=== PATIENT | male | born 1990 | race Caucasian/White ===

== ENCOUNTER 2017-07-11 16:06 | Emergency (ER) | payer MEDICAID, OTHER ==
[2017-07-11 16:22] VITALS: BMI 29.2
[2017-07-11 16:23] VITALS: O2SAT 99
[2017-07-11 17:36] VITALS: BP 111/68; PULSE 67; RESP 20; TEMP 98.1
--- NOTE | 2017-07-11 18:09 | C.PDOC ---
History Of Present Illness 27 yr old male presents to the ER with complaints of right arm pain and numbness upon waking up today. Patient states he was sleeping on his right arm and states numbness persists. Denies fever, chills, vision changes, chest pain, SOB, nausea, vomiting, weakness or numbness. Time Seen by Provider: 07/11/17 16:26 Chief Complaint (Nursing): Upper Extremity Problem/Injury History Per: Patient History/Exam Limitations: no limitations Onset/Duration Of Symptoms: Days Past Medical History Reviewed: Historical Data, Nursing Documentation, Vital Signs Vital Signs: Last Vital Signs Temp 98.1 F 07/11/17 17:35 Pulse 67 07/11/17 17:35 Resp 20 07/11/17 17:35 BP 111/68 07/11/17 17:35 Pulse Ox 99 07/11/17 18:10 Family History: States: No Known Family Hx - Social History Hx Alcohol Use: Yes Hx Substance Use: No - Immunization History Hx Tetanus Toxoid Vaccination: No Hx Influenza Vaccination: No Hx Pneumococcal Vaccination: No Review Of Systems Except As Marked, All Systems Reviewed And Found Negative. Constitutional: Negative for: Fever, Chills Eyes: Negative for: Vision Change Cardiovascular: Negative for: Chest Pain Respiratory: Negative for: Shortness of Breath Gastrointestinal: Negative for: Nausea, Vomiting Musculoskeletal: Positive for: Other ((+) Right arm numbness and pain.) Neurological: Negative for: Weakness, Numbness Physical Exam - Physical Exam Appears: Non-toxic, No Acute Distress Skin: Warm, Dry Head: Atraumatic, Normacephalic Oral Mucosa: Moist Chest: Symmetrical, No Tenderness Cardiovascular: Rhythm Regular, No Murmur Respiratory: Normal Breath Sounds, No Rales, No Rhonchi, No Stridor, No Wheezing Extremity: Normal ROM, No Swelling Neurological/Psych: Oriented x3, Normal Speech, Other ((+) Mild diffuse neuropathy to the right arm.) Gait: Steady ED Course And Treatment O2 Sat by Pulse Oximetry: 99 (RA ) Pulse Ox Interpretation: Normal Disposition - Disposition Referrals: [facility] [Outside] [facility] [Outside] Disposition: HOME/ ROUTINE Disposition Time: 17:00 Condition: GOOD Additional Instructions: Thank you for letting us take care of you today. Your provider was Dr. Stanley. You were treated for arm numbness/pain. The emergency medical care you received today was directed at your acute symptoms. If you were prescribed any medication, please fill it and take as directed. It may take several days for your symptoms to resolve. Return to the Emergency Department if your symptoms worsen, do not improve, or if you have any other problems. Please contact your doctor or call one of the physicians/clinics you have been referred to that are listed on the Patient Visit Information form that is included in your discharge packet. Bring any paperwork you were given at discharge with you along with any medications you are taking to your follow up visit. Our treatment cannot replace ongoing medical care by a primary care provider (PCP) outside of the emergency department. Thank you for allowing the [employer] team to be part of your care today. Follow up with the clinic in 2-3 days for re-evaluation and further management. Prescriptions: Cyclobenzaprine [Cyclobenzaprine HCl] 10 mg PO Q8 PRN #20 tab PRN Reason: Muscle Spasm Ibuprofen [Motrin] 600 mg PO Q6 PRN #20 tab PRN Reason: Pain, Moderate (4-7) Instructions: Paresthesia (ED) Forms: [employer] (German) - Clinical Impression Clinical Impression: Arm paresthesia, right - Scribe Statement The provider has reviewed the documentation as recorded by the Chelly Magaña Provider Attestation: All medical record entries made by the Chelly were at my direction and personally dictated by me. I have reviewed the chart and agree that the record accurately reflects my personal performance of the history, physical exam, medical decision making, and the department course for this patient. I have also personally directed, reviewed, and agree with the discharge instructions and disposition.
== END 2017-07-11 17:35 | disposition home or self-care (01) ==
LOC: C.ER 16:06
DX: R20.2 Paresthesia of skin (principal)

== ENCOUNTER 2017-08-02 20:49 | Emergency (ER) | payer SELFPAY ==
[2017-08-02 20:49] VITALS: BMI 29.2
[2017-08-02 21:51] VITALS: TEMP 98.1
--- NOTE | 2017-08-02 22:36 | C.PDOC ---
History Of Present Illness 27 year old male who presents to the ER with a complaint of a diffuse rash since 16:00. Patient did not take anything [employer]; denies any known allergens, SOB , or chest tightness. Time Seen by Provider: 08/02/17 21:58 Chief Complaint (Nursing): Abnormal Skin Integrity History Per: Patient History/Exam Limitations: no limitations Onset/Duration Of Symptoms: Hrs Current Symptoms Are (Timing): Still Present Recent travel outside of the [place]: No Past Medical History Reviewed: Historical Data, Nursing Documentation, Vital Signs Vital Signs: Last Vital Signs Temp 98.1 F 08/02/17 22:46 Pulse 56 L 08/02/17 22:46 Resp 18 08/02/17 22:46 BP 117/75 08/02/17 22:46 Pulse Ox 98 08/03/17 00:37 - Medical History PMH: No Chronic Diseases Surgical History: No Surg Hx Family History: States: Unknown Family Hx - Social History Hx Alcohol Use: Yes Hx Substance Use: No - Immunization History Hx Tetanus Toxoid Vaccination: No Hx Influenza Vaccination: No Hx Pneumococcal Vaccination: No Review Of Systems Constitutional: Negative for: Fever, Chills Cardiovascular: Negative for: Chest Pain Respiratory: Negative for: Shortness of Breath Skin: Positive for: Rash Physical Exam - Physical Exam Appears: Non-toxic, No Acute Distress Skin: Warm, Dry, Rash (Diffuse urticaria) Head: Atraumatic, Normacephalic Eye(s): bilateral: Normal Inspection, EOMI Ear(s): Bilateral: Normal Oral Mucosa: Moist Tongue: Normal Appearing, No Swelling Lips: Normal Appearing, No Swelling Throat: Normal, No Erythema, No Other (Swelling) Neck: Normal, Supple Chest: Symmetrical, No Tenderness Cardiovascular: Rhythm Regular, No Murmur Respiratory: Normal Breath Sounds, No Rales, No Rhonchi, No Stridor, No Wheezing Gastrointestinal/Abdominal: Soft, No Tenderness Neurological/Psych: Oriented x3, Normal Speech, Normal Cognition ED Course And Treatment O2 Sat by Pulse Oximetry: 98 (Room air) Pulse Ox Interpretation: Normal Progress Note: Benadryl, pepcid, and prednisone administered. On reevaluation, patient's condition has much improved; patient was given Rx along with return precautions and discharged home with instructions to follow up with PMD. Disposition Counseled Patient/Family Regarding: Diagnosis, Need For Followup, Rx Given - Disposition Disposition: HOME/ ROUTINE Disposition Time: 22:34 Condition: STABLE Additional Instructions: Take meds as directed Follow up with PMD Return to ER if lip swelling, or difficulty breathing Prescriptions: Cetirizine HCl [Zyrtec] 10 mg PO DAILY #20 capsule DiphenhydrAMINE [Benadryl] 50 mg PO Q6H #20 cap predniSONE [Prednisone] 40 mg PO DAILY #8 tab Instructions: Urticaria (ED) Forms: [employer] (Welsh) - Clinical Impression Clinical Impression: Urticaria - Scribe Statement The provider has reviewed the documentation as recorded by the Scribe Royce Costello All medical record entries made by the Aidaibaniya were at my direction and personally dictated by me. I have reviewed the chart and agree that the record accurately reflects my personal performance of the history, physical exam, medical decision making, and the department course for this patient. I have also personally directed, reviewed, and agree with the discharge instructions and disposition.
[2017-08-02 22:52] VITALS: BP 117/75; PULSE 56; RESP 18
[2017-08-03 00:28] VITALS: O2SAT 98
== END 2017-08-02 22:49 | disposition home or self-care (01) ==
LOC: C.ER 20:49
DX: L50.9 Urticaria, unspecified (principal)

== ENCOUNTER 2017-08-03 19:59 | Emergency (ER) | payer SELFPAY ==
[2017-08-03 19:59] VITALS: BMI 29.2
[2017-08-03 20:06] VITALS: BP 134/82; PULSE 100; TEMP 97.8; O2SAT 99
--- NOTE | 2017-08-03 20:26 | C.PDOC ---
History Of Present Illness 27yo male, presents to the ED for evaluation of diffuse pruritic rash. Of note, patient was seen in the ED yesterday for the same complaints and was given prescriptions. Patient states since he was at work today, he was unable to fill out his prescriptions. Patient presents today because his rash came back; he denies any chest discomfort, shortness of breath and offers no additional medical complaints. Time Seen by Provider: 08/03/17 20:08 Chief Complaint (Nursing): Allergic Reaction History Per: Patient History/Exam Limitations: no limitations Onset/Duration Of Symptoms: Days Current Symptoms Are (Timing): Still Present Quality Of Symptoms: Itching Recent travel outside of the [place]: No Past Medical History Reviewed: Historical Data, Nursing Documentation, Vital Signs Vital Signs: Last Vital Signs Temp 97.8 F 08/03/17 20:04 Pulse 100 H 08/03/17 20:04 Resp 20 08/03/17 20:49 BP 134/82 08/03/17 20:04 Pulse Ox 99 08/03/17 20:26 - Medical History PMH: No Chronic Diseases Surgical History: No Surg Hx Family History: States: Unknown Family Hx - Social History Hx Alcohol Use: Yes Hx Substance Use: Yes - Immunization History Hx Tetanus Toxoid Vaccination: No Hx Influenza Vaccination: No Hx Pneumococcal Vaccination: No Review Of Systems Cardiovascular: Negative for: Chest Pain Respiratory: Negative for: Shortness of Breath Skin: Positive for: Rash Physical Exam - Physical Exam Appears: Non-toxic, No Acute Distress Skin: Warm, Dry, Rash (diffuse urticarial rash ) Head: Atraumatic, Normacephalic Eye(s): bilateral: Normal Inspection Throat: Normal Neck: Supple Cardiovascular: Rhythm Regular Respiratory: Normal Breath Sounds, No Wheezing Neurological/Psych: Oriented x3, Normal Speech, Normal Cognition ED Course And Treatment O2 Sat by Pulse Oximetry: 99 (RA) Pulse Ox Interpretation: Normal Medical Decision Making Medical Decision Making: Impression: 27yo male with diffuse urticarial rash Plan: -- Benadryl 50 mg PO -- Pepcid 20 mg PO -- Prednisone 40 mg PO 2024 Patient reports feeling much better. Stable for d/c home. 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 - Scribe Statement The provider has reviewed the documentation as recorded by the Aidaibe Lanette Linn All medical record entries made by the Chelly were at my direction and personally dictated by me. I have reviewed the chart and agree that the record accurately reflects my personal performance of the history, physical exam, medical decision making, and the department course for this patient. I have also personally directed, reviewed, and agree with the discharge instructions and disposition.
[2017-08-03 20:49] VITALS: RESP 20
== END 2017-08-03 20:49 | disposition home or self-care (01) ==
LOC: SUPCPDRO 19:59 → C.ER 19:59
DX: L50.9 Urticaria, unspecified (principal)

== ENCOUNTER 2017-10-16 04:20 | Emergency (ER) | payer SELFPAY ==
[2017-10-16 04:20] VITALS: BMI 29.2
[2017-10-16 04:31] VITALS: O2SAT 98
--- NOTE | 2017-10-16 04:53 | C.PDOC ---
History Of Present Illness pt woke up with a diffuse urticarial rash. 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 tolerating po Time Seen by Provider: 10/16/17 04:41 Chief Complaint (Nursing): Abnormal Skin Integrity Onset/Duration Of Symptoms: Hrs Current Symptoms Are (Timing): Still Present Quality Of Symptoms: Itching Severity: Moderate Pain Scale Rating Of: 4 Recent travel outside of the [place]: No Additional History Per: Patient Past Medical History Reviewed: Historical Data, Nursing Documentation, Vital Signs Vital Signs: Last Vital Signs Temp 97.7 F 10/16/17 04:27 Pulse 78 10/16/17 04:27 Resp 20 10/16/17 04:27 BP 109/74 10/16/17 04:27 Pulse Ox 98 10/16/17 04:27 Family History: States: No Known Family Hx - Social History Hx Alcohol Use: Yes Hx Substance Use: Yes - Immunization History Hx Tetanus Toxoid Vaccination: No Hx Influenza Vaccination: No Hx Pneumococcal Vaccination: No Review Of Systems Constitutional: Negative for: Fever, Chills Eyes: Negative for: Redness ENT: Negative for: Throat Pain Cardiovascular: Negative for: Chest Pain Respiratory: Negative for: Shortness of Breath Gastrointestinal: Negative for: Nausea Genitourinary: Negative for: Dysuria Musculoskeletal: Negative for: Back Pain Skin: Positive for: Rash Neurological: Negative for: Weakness Psych: Negative for: Anxiety Physical Exam - Physical Exam Appears: Non-toxic, No Acute Distress Skin: Warm, Dry Head: Normacephalic Eye(s): bilateral: Normal Inspection Oral Mucosa: Moist Tongue: Normal Appearing Lips: Normal Appearing Neck: Supple Chest: Symmetrical Cardiovascular: Rhythm Regular Respiratory: No Rales, No Rhonchi, No Wheezing Gastrointestinal/Abdominal: Soft, No Tenderness, No Distention Back: No CVA Tenderness Extremity: Normal ROM Extremity: Bilateral: Atraumatic, Normal Color And Temperature Pulses: Left Dorsalis Pedis: Normal, Right Dorsalis Pedis: Normal Neurological/Psych: Oriented x3, Normal Speech, Normal Cognition Gait: Steady ED Course And Treatment O2 Sat by Pulse Oximetry: 98 Pulse Ox Interpretation: Normal Disposition Counseled Patient/Family Regarding: Studies Performed, Diagnosis, Need For Followup - Disposition Referrals: [facility] [Outside] [facility] [Outside] Disposition: HOME/ ROUTINE Disposition Time: 04:50 Condition: FAIR Prescriptions: Epinephrine [Epipen] 0.3 mg IJ ONCE PRN #1 auto.injct PRN Reason: Anaphylaxis Prednisone [Deltasone] 20 mg PO DAILY #5 tablet Instructions: General Allergic Reaction (ED) - Clinical Impression Clinical Impression: Allergic reaction
[2017-10-16 06:25] VITALS: BP 115/64; PULSE 60; RESP 17; TEMP 97.6
== END 2017-10-16 06:25 | disposition home or self-care (01) ==
LOC: C.ER 04:20
DX: T78.40XA Allergy, unspecified, initial encounter (principal)